=== PATIENT | female | born 1975 | race African-American/Black ===

== ENCOUNTER 2023-08-01 19:13 | Emergency (ER) | payer SELFPAY ==
[2023-08-01] MEDS ORDERED: Fluorescein 1 MG Ophth Strip EYEBOTH ONE (20:13)
[2023-08-01] MEDS ORDERED: Tetracaine HCl/PF 0.5% 4 ML Bottle EYEBOTH ONE (20:13)
[2023-08-01] MEDS ORDERED: Cephalexin 500 MG Cap PO ONE (20:44)
[2023-08-01] MEDS ORDERED: Ibuprofen 600 MG Tab PO ONE (20:44)
== END 2023-08-01 21:45 | disposition home or self-care (01) ==
LOC: MW.ED 19:13
DX: T60.91XA Toxic effect of unspecified pesticide, accidental (unintentional), initial encounter (principal); H10.213 Acute toxic conjunctivitis, bilateral; K04.7 Periapical abscess without sinus
CPT/HCPCS: 99283; A9270; J3490

== ENCOUNTER 2023-08-09 07:56 | Emergency (ER) | payer SELFPAY | END 2023-08-09 09:10 | disposition home or self-care (01) | LOC: MW.ED 07:56 | DX: B37.31 Acute candidiasis of vulva and vagina (principal) | CPT/HCPCS: 99283 ==

== ENCOUNTER 2023-09-11 06:35 | Emergency (ER) | payer SELFPAY | END 2023-09-11 07:25 | disposition home or self-care (01) | LOC: MW.ED 06:35 | DX: K08.89 Other specified disorders of teeth and supporting structures (principal) | CPT/HCPCS: 99282; 99283 ==

== ENCOUNTER 2024-01-10 19:43 | Emergency (ER) | payer SELFPAY ==
[2024-01-10] MEDS: Fluconazole 150 MG Tab PO ONE (20:54)
== END 2024-01-10 21:04 | disposition home or self-care (01) ==
LOC: MW.ED 19:43
DX: B37.31 Acute candidiasis of vulva and vagina (principal); Z79.899 Other long term (current) drug therapy
CPT/HCPCS: 99283; A9270

== ENCOUNTER 2025-02-05 06:19 | Day surgery (SDC) | payer BC, OTHER ==
[2025-02-04 11:23] LABS: HEMATOCRIT 40.2 % (37.0-47.0); HEMOGLOBIN 13.3 g/dL (12.0-16.0); MEAN CORPUSCULAR HEMOGLOBIN 28.1 pg (28.0-32.0); MEAN CORPUSCULAR HGB CONC 33.1 g/dL (32.0-36.0); MEAN CORPUSCULAR VOLUME 84.8 fL (83.0-99.0); MEAN PLATELET VOLUME 9.6 fL (9.4-12.3); PLATELET COUNT,PLT 258 K/uL (150-400); RED BLOOD CELL COUNT 4.74 M/uL (4.10-5.30); WHITE BLOOD CELL COUNT,WBC 4.04 K/uL (3.9-11.3)
[2025-02-05] MEDS ORDERED: Scopalamine 1mg/3day Transdermal Patch TOP ONE (06:30)
[2025-02-05] MEDS: Lactated Ringers 1,000 ML IV SCH (07:00)
[2025-02-05] MEDS ORDERED: Midazolam 1 MG/ML 2 ML SDV ONE (07:29)
[2025-02-05] MEDS ORDERED: fentaNYL 100 MCG/2 ML SDV ONE (07:29)
[2025-02-05] MEDS ORDERED: Propofol 200 MG/20 ML SDV ONE (07:29)
[2025-02-05] MEDS ORDERED: Dexamethasone 4 MG/ML 5 ML MDV ONE (07:30)
[2025-02-05] MEDS ORDERED: Ondansetron 4 MG/2 ML SDV ONE (07:30)
[2025-02-05] MEDS ORDERED: Lidocaine 2% 5 ML SDV ONE (07:30)
[2025-02-05] MEDS ORDERED: Ketorolac 30 MG/ML SDV ONE (07:30)
[2025-02-05] MEDS ORDERED: Naloxone 0.4 MG/ML SDV IVPUSH PRN (07:55)
[2025-02-05] MEDS ORDERED: Ondansetron 4 MG/2 ML SDV IVPUSH PRN (07:55)
[2025-02-05] MEDS ORDERED: HYDROmorphone 1 MG/ML Syringe IVPUSH PRN (07:55)
[2025-02-05] MEDS ORDERED: Phenylephrine HCl In 0.9% NaCl 1 MG/10 ML Syringe IVPUSH PRN (07:55)
[2025-02-05] MEDS ORDERED: Albuterol 0.083% 2.5 MG/3 ML Neb Soln NEB PRN (07:55)
[2025-02-05] MEDS ORDERED: Morphine 2 MG/ML SYRINGE IVPUSH PRN (07:55)
[2025-02-05] MEDS ORDERED: Metoclopramide 10 MG/2 ML SDV IVPUSH PRN (07:55)
[2025-02-05] MEDS ORDERED: ePHEDrine 50 MG/ML SDV ONE (08:27)
[2025-02-05] MEDS: fentaNYL 50 MCG/ML SDV IVPUSH PRN (09:04)
== END 2025-02-05 10:05 | disposition home or self-care (01) ==
LOC: MW.SDS 06:19
PROVIDERS: ATTEND Obstetrics & Gynecology
DX: N93.9 Abnormal uterine and vaginal bleeding, unspecified (principal); M06.9 Rheumatoid arthritis, unspecified; E03.9 Hypothyroidism, unspecified; Z79.890 Hormone replacement therapy; Z79.899 Other long term (current) drug therapy
CPT/HCPCS: 36415; 58561; 84702; 85027; J1100; J1885; J2003; J2250; J2704; J3010; J7120; 00952; J2405; J3490